=== PATIENT | male | born 1970 ===

== ENCOUNTER 2016-08-03 16:25 | Emergency (ER) | payer SELFPAY ==
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
== END 2016-08-03 18:00 | disposition home or self-care (01) ==
LOC: ER 16:25
DX: F07.81 Postconcussional syndrome (principal); F17.210 Nicotine dependence, cigarettes, uncomplicated